=== PATIENT | male | born 1950 | race Caucasian/White ===

== ENCOUNTER 2018-03-01 10:14 | Day surgery (SDC) | payer MEDICARE, SELFPAY ==
[2018-03-01 10:53] VITALS: BP 147/86; PULSE 86; RESP 16; TEMP 36.1; O2SAT 97; BMI 22.4
[2018-03-01] MEDS: PROPARACAINE 0.5% OPHTH SOL 2 DROPS EYE-OP (10:54)
[2018-03-01] MEDS: CATARACT EYE COMPOUND (10 DROPS/SYRINGE) 3 DROPS EYE-OP (11:00)
--- NOTE | 2018-03-01 12:14 | P.OP.PRE_ITS ---
Pre-operative Note Interval Note Changes: No
--- NOTE | 2018-03-01 12:14 | PM.PREOP ---
Pre-operative Note Interval Note Changes: No
--- NOTE | 2018-03-01 12:14 | PM.OP.1 ---
Operative Date/Time/Diagnoses Pre-op diagnosis: Cataract Left eye Post-op diagnosis: same Procedure & Clinicians Surgeon: Luis Armando Grimaldo Anesthesia Type: MAC +/- and Sedation Operative Notes Procedure in detail: Patient brought to the operating suite. Tetracaine drops placed in the left eye. Marking instrument was used to teri the verticle and horizontal meridians. Patient was prepped and draped in sterile manner. Wire lid speculum was placed in the eye. Betadine drops were placed on the eye. This was irrigated. Lidocaine jelly was placed on the eye. A paracentesis port was created with a side-port blade. 0.1 mL 1% preservative free lidocaine was injected into the anterior chamber. The anterior chamber was deepened with viscoelastic. 2.6 mm keratome was used to create a temporal clear corneal incision. Cystotome and Utrata forceps were used to create continuous tear capsulorrhexis. Balanced salt solution was used to hydro dissect the nucleus. The phacoemulsification handpiece was inserted and the nucleus was removed using the stop and chop technique. The irrigation aspiration handpiece was inserted and the remaining cortex was removed. Anterior chamber was deepened with viscoelastic. An Arroyo [id number] intraocular lens with a power of 17.5 was injected into the capsular bag. Irrigation aspiration handpiece was inserted and the remaining viscoelastic was removed. The lens was rotated to the 180 degree meridian. Incision was hydrated with balanced salt solution and found to be leak free with pressure with Weck-Bridget sponges. 0.1 mL Vigamox injected anterior chamber. 0.3 mL Kenalog 10 mg was injected subconjunctivally. Lid speculum was removed. The patient left the operating room in excellent condition. Complications: none Condition: stable Disposition: same day surgery
--- NOTE | 2018-03-01 12:24 | SUR.OPER ---
Supine on eye stretcher, head on extension cradle secured with tape. Arms tucked at sides with blanket. Pillow under knees.
[2018-03-01] MEDS: TRIAMCINOLONE 50 MG/5 ML VIAL INJ (12:28)
[2018-03-01] MEDS: PHENYLEPHRINE/LIDOCAINE 3ML VIAL (OR) EYE-OP (12:29)
[2018-03-01] MEDS: MOXIFLOXACIN OPHTH DROPS 3 ML BOTTLE 2 DROPS INJ (12:29)
[2018-03-01] MEDS: CHONDROIDTIN/SOD HYALURONATE 1.05 ML SYRINGE INTRAOCULA (12:29)
[2018-03-01] MEDS: TETRACAINE 0.5% OPHTH DROPS 15 ML 2 DROPS EYE-LEFT (12:29)
[2018-03-01] MEDS: LIDOCAINE JELLY 2% 5 ML 1 APPLIC TOP (12:29)
[2018-03-01] MEDS: BALANCED SALT IRRIG SOLN NO.2 500 ML, EPINEPHrine 1 MG IRR (12:30)
[2018-03-01 12:40] VITALS: BP 152/93; PULSE 72; RESP 20; TEMP 36; O2SAT 97
== END 2018-03-01 12:55 | disposition home or self-care (01) ==
PROVIDERS: Family Provider Naturopath; Visit Provider Ophthalmology
DX: H25.12 Age-related nuclear cataract, left eye (principal); I10 Essential (primary) hypertension
CPT/HCPCS: J0171; J2250; J3010; J3301; V2787

== ENCOUNTER 2018-03-15 11:19 | Day surgery (SDC) | payer MEDICARE, SELFPAY ==
[2018-03-15] MEDS: PROPARACAINE 0.5% OPHTH SOL 2 DROPS EYE-OP (11:35)
--- NOTE | 2018-03-15 11:39 | P.OP_ITS ---
Operative Date/Time/Diagnoses Pre-op diagnosis: Cataract Right eye Post-op diagnosis: same Procedure & Clinicians Procedure: Cataract Surgery Same procedure as scheduled: Yes Surgeon: Luis Armando Grimaldo Anesthesia Type: MAC +/- and Sedation Operative Notes Procedure in detail: Patient brought to the operating suite. Tetracaine drops placed in the right eye. Patient was prepped and draped in sterile manner. Wire lid speculum was placed in the eye. Betadine drops were placed on the eye. This was irrigated. Lidocaine jelly was placed on the eye. A paracentesis port was created with a side-port blade. 0.1 mL 1% preservative free lidocaine was injected into the anterior chamber. The anterior chamber was deepened with viscoelastic. 2.6 mm keratome was used to create a temporal clear corneal incision. Cystotome and Utrata forceps were used to create continuous tear capsulorrhexis. Balanced salt solution was used to hydro dissect the nucleus. The phacoemulsification handpiece was inserted and the nucleus was removed using the stop and chop technique. The irrigation aspiration handpiece was inserted and the remaining cortex was removed. Anterior chamber was deepened with viscoelastic. An Arroyo ZCB00 intraocular lens with a power of 18.0 was injected into the capsular bag. Irrigation aspiration handpiece was inserted and the remaining viscoelastic was removed. Incision was hydrated with balanced salt solution and found to be leak free with pressure with Weck- Bridget sponges. 0.1 mL Vigamox injected anterior chamber. 0.3 mL Kenalog 10 mg was injected subconjunctivally. Lid speculum was removed. The patient left the operating room in excellent condition. Complications: none Condition: stable Disposition: same day surgery
--- NOTE | 2018-03-15 11:39 | P.OP.PRE_ITS ---
Pre-operative Note Interval Note Changes: No
--- NOTE | 2018-03-15 11:39 | PM.PREOP ---
Pre-operative Note Interval Note Changes: No
[2018-03-15] MEDS: CATARACT EYE COMPOUND (10 DROPS/SYRINGE) 3 DROPS EYE-OP (11:40)
[2018-03-15 11:42] VITALS: BP 145/85; PULSE 74; RESP 16; TEMP 36.5; O2SAT 97; BMI 21.7
--- NOTE | 2018-03-15 11:50 | SUR.OPER ---
Supine on eye stretcher, head on extension cradle secured with tape. Arms tucked at sides with blanket. Pillow under knees.
[2018-03-15] MEDS: LIDOCAINE JELLY 2% 5 ML 1 APPLIC TOP (12:02)
[2018-03-15] MEDS: CHONDROIDTIN/SOD HYALURONATE 1.05 ML SYRINGE INTRAOCULA (12:02)
[2018-03-15] MEDS: PHENYLEPHRINE/LIDOCAINE 3ML VIAL (OR) EYE-OP (12:03)
[2018-03-15] MEDS: TRIAMCINOLONE 50 MG/5 ML VIAL INJ (12:03)
[2018-03-15] MEDS: TETRACAINE 0.5% OPHTH DROPS 15 ML 2 DROPS EYE-RIGHT (12:03)
[2018-03-15] MEDS: MOXIFLOXACIN OPHTH DROPS 3 ML BOTTLE 2 DROPS INJ (12:03)
[2018-03-15] MEDS: BALANCED SALT IRRIG SOLN NO.2 500 ML, EPINEPHrine 1 MG IRR (12:04)
[2018-03-15 12:13] VITALS: BP 148/92; PULSE 74; RESP 16; TEMP 36.2; O2SAT 99
== END 2018-03-15 12:28 ==
LOC: OR 11:21
PROVIDERS: Family Provider Naturopath; Visit Provider Ophthalmology
DX: H25.11 Age-related nuclear cataract, right eye (principal); I10 Essential (primary) hypertension
CPT/HCPCS: J0171; J2250; J3010; J3301

== ENCOUNTER → 2018-12-19 11:19 | Outpatient (CLI) | payer MEDICARE, SELFPAY ==
--- NOTE | 2018-12-19 | DI.MRI.S_ITS ---
PROCEDURE: MR LUMBAR SPINE WO CON INDICATIONS: DORSALGIA TECHNIQUE: Noncontrast sagittal T1 spin echo and T2 fast echo, sagittal STIR, axial T1 and T2 fast spin echo through the lumbar spine. In cases with scoliosis, additional coronal T2 fast spin echo may be performed. COMPARISON: None. FINDINGS: Image quality: Excellent. Alignment and Curvature: There is mild retrolisthesis seen at the L5-S1 level. Bone Marrow: Marrow is of normal overall signal. No acute vertebral body compression fractures. Spinal Cord: Conus medullaris terminates at the T12-L1 level. Visualized cord demonstrates normal signal and size. Paraspinous Soft Tissues: No paravertebral masses. T12-L1: Normal appearance. L1-L2: The disc height and disc signal are relatively well-preserved. Mild disc bulge is seen, with a central/right disc extrusion, with superior migration of disc material. There is mild to moderate central canal narrowing seen. No significant neural foraminal narrowing is seen. L2-L3: Normal appearance. L3-L4: The disc height and disc signal are relatively well-preserved. Mild generalized disc bulge is seen. No neural foraminal or central canal narrowing are seen. L4-L5: The disc height is well-preserved. Loss of disc signal is seen at this level. Mild to moderate disc bulge is seen. Moderate facet joint hypertrophy is seen. Moderate to severe bilateral neural foraminal narrowing is seen, left worse than right. There is a degree of compression seen upon the exiting nerve roots. Mild central canal narrowing is seen. L5-S1: Moderate to severe loss of disc height and disc signal are seen. Reactive marrow endplate changes are seen, which are hyperintense on T1-weighted and T2-weighted imaging and most consistent with fatty metaplasia (Modic type II changes). Moderate generalized disc bulge is seen. Moderate facet joint hypertrophy is seen. There is at least moderate right-sided neural foraminal narrowing seen. Moderate to severe left-sided neural foraminal narrowing seen. There is a degree of compression seen upon the exiting nerve roots, left worse than right. No significant central canal narrowing is seen. IMPRESSION: At L1-L2, there is a central disc extrusion seen. At L4-L5 and at L5-S1, there is a degree of compression seen upon the exiting bilateral L4 and L5 nerve roots. Moderate to severe loss of disc height is seen at L5-S1. Dictated by: Yovany Davila M.D. on 12/19/2018 at 12:20 Approved by: Yovany Davila M.D. on 12/19/2018 at 12:25
== END ==
PROVIDERS: Family Provider Naturopath; Visit Provider Orthopaedic Surgery
DX: M54.9 Dorsalgia, unspecified (principal); M43.17 Spondylolisthesis, lumbosacral region; M51.16 Intervertebral disc disorders with radiculopathy, lumbar region; M51.17 Intervertebral disc disorders with radiculopathy, lumbosacral region; M48.061 Spinal stenosis, lumbar region without neurogenic claudication; M48.07 Spinal stenosis, lumbosacral region
CPT/HCPCS: 72148

== ENCOUNTER → 2019-09-07 13:56 | Outpatient (CLI) | payer MEDICARE, SELFPAY ==
[2019-09-07 14:35] LABS: Add Manual Diff / Slide Review NO; Basophils Absolute Auto 200 /uL (0-100); Basophils Percent Auto 3.1 % (0-2); Eosinophils Absolute Auto 300 /uL (0-450); Eosinophils Percent Auto 4.4 % (2-4); Hematocrit 44.9 % (41-53); Hemoglobin 15.4 g/dL (13.5-17.5); Lymphocytes Absolute Auto 2700 /uL (1100-4500); Lymphocytes Percent Auto 34.6 % (25-40); Mean Corpuscular HGB Conc 34.2 % (30-36); Mean Corpuscular Volume 90.4 fL (80-100); Monocytes Absolute Auto 900 /uL (0-900); Monocytes Percent Auto 11.6 % (3-14); Neutrophils Absolute Auto 3600 /uL (1500-7000); Neutrophils Percent Auto 46.3 % (50-75); Platelet Count 300 X10^3/uL (150-400); Red Blood Cell Count 4.96 X10^6/uL (4.5-5.9); Red Cell Distribution Width 13.8 % (11.6-14.8); White Blood Cell Count 7.8 X10^3/uL (4.5-11.0)
[2019-09-07 14:43] LABS: BUN Creatinine Ratio 26.3 (6-22); Blood Urea Nitrogen 21 mg/dL (9-20); Calcium 9.7 mg/dL (8.4-10.2); Carbon Dioxide 27 mmol/L (22-32); Chloride 103 mmol/L (98-107); Estimated Glomerular Filt Rate > 60.0 mL/min (>60); Glucose 134 mg/dL (80-110); HEMOLYSIS < 15 (0-50); Potassium 3.9 mmol/L (3.4-5.1); Sodium 140 mmol/L (137-145)
== END ==
PROVIDERS: Family Provider Naturopath; PCP Naturopath; Visit Provider Orthopaedic Surgery Orthopaedic Surgery of the Spine
DX: Z01.818 Encounter for other preprocedural examination (principal); Z01.812 Encounter for preprocedural laboratory examination
CPT/HCPCS: 36415; 80048; 85025; 93005; 93010

== ENCOUNTER → 2020-02-15 13:30 | Outpatient (CLI) | payer MEDICARE, SELFPAY ==
[2020-02-15 13:47] LABS: Add Manual Diff / Slide Review NO; Basophils Absolute Auto 100 /uL (0-100); Basophils Percent Auto 1.1 % (0-2); Eosinophils Absolute Auto 200 /uL (0-450); Eosinophils Percent Auto 2.5 % (2-4); Hematocrit 47.5 % (41-53); Hemoglobin 16.1 g/dL (13.5-17.5); Lymphocytes Absolute Auto 2700 /uL (1100-4500); Mean Corpuscular Hemoglobin 31.5 PG (26-34); Mean Corpuscular Volume 92.7 fL (80-100); Monocytes Absolute Auto 600 /uL (0-900); Monocytes Percent Auto 7.5 % (3-14); Neutrophils Absolute Auto 4800 /uL (1500-7000); Neutrophils Percent Auto 56.9 % (50-75); Platelet Count 279 X10^3/uL (150-400); Red Blood Cell Count 5.12 X10^6/uL (4.5-5.9); Red Cell Distribution Width 13.8 % (11.6-14.8); White Blood Cell Count 8.5 X10^3/uL (4.5-11.0)
[2020-02-15 16:03] LABS: BUN Creatinine Ratio 18.9 (6-22); Blood Urea Nitrogen 17 mg/dL (9-20); Calcium 9.7 mg/dL (8.4-10.2); Carbon Dioxide 27 mmol/L (22-32); Chloride 102 mmol/L (98-107); Estimated Glomerular Filt Rate > 60.0 mL/min (>60); Glucose 167 mg/dL (80-110); HEMOLYSIS < 15 (0-50); Potassium 4.6 mmol/L (3.4-5.1); Sodium 138 mmol/L (137-145)
== END ==
PROVIDERS: Family Provider Naturopath; PCP Naturopath; Referring Provider Orthopaedic Surgery Orthopaedic Surgery of the Spine; Visit Provider Orthopaedic Surgery Orthopaedic Surgery of the Spine
DX: Z01.812 Encounter for preprocedural laboratory examination (principal); Z01.818 Encounter for other preprocedural examination
CPT/HCPCS: 36415; 80048; 85025; 93005

== ENCOUNTER → 2020-02-23 13:18 | Outpatient (CLI) | payer MEDICARE, SELFPAY ==
[2020-02-24 09:20] LABS: COVID19 Sendout Not Detected (Not Detect)
== END ==
PROVIDERS: PCP Naturopath; Visit Provider Physician Assistant
DX: Z01.812 Encounter for preprocedural laboratory examination (principal)
CPT/HCPCS: 87635

== ENCOUNTER 2020-02-27 12:47 | Observation (INO) | payer MEDICARE, SELFPAY ==
[2020-02-19 12:24] VITALS: BMI 25.9
[2020-02-26] VITALS (18 sets, daily range): BP systolic 111–155; BP diastolic 71–91; PULSE 75–93; RESP 9–18; TEMP 35.8–36.7; O2SAT 91–100; BMI 25.0
--- NOTE | 2020-02-26 | DI.RAD.S_ITS ---
PROCEDURE: XR LUMBAR SPINE 2-3V INDICATIONS: L5-S1 TLIF TECHNIQUE: 2 views of the lumbar spine were acquired. COMPARISON: None. FINDINGS: Bones: There has been successful placement of transverse pedicle screws and vertical fixation rods and a interbody disc prosthesis crossing L5-S1, establishing normal alignment. Soft tissues: Overlying bowel gas pattern is normal. No suspicious soft tissue calcifications. IMPRESSION: Normal alignment is stab wished after posterior fusion procedure with interbody disc cage prosthesis placement at L5-S1. Dictated by: Raciel Lobo M.D. on 02/26/2020 at 11:19 Approved by: Raciel Lobo M.D. on 02/26/2020 at 11:20
[2020-02-26] MEDS: LACTATED RINGERS 1,000 ML 42 ML IV ×2 (07:00→09:29)
--- NOTE | 2020-02-26 07:46 | PM.PREOP ---
Pre-operative Note COVID-19 COVID-19 status: Negative Result date/Date tested (Pos, Neg/Pending): 02/24/20 Interval Note History & Physical reviewed/Exam performed by Physician: Yes Changes to H&P: No
[2020-02-26] MEDS: CEFAZOLIN 1 GM/50 ML FROZ.PIGGY IV ×3 (07:48→23:17)
--- NOTE | 2020-02-26 08:39 | SUR.OPER ---
Prone on spine table, head in foam head support, padded chest and pelvic supports, gel pad at knees, lower legs supported by pillows; nipples, genitalia and toes free of pressure, arms secured on foam padded arm boards at <90 degrees abduction. Tape over blanket at thigh secured to table.
[2020-02-26] MEDS: BUPIVACAINE 0.25% W/ EPI 30 ML VIAL INJ (08:50)
[2020-02-26] MEDS: BUPIVACAINE LIPOSOME 266 MG/20 ML VIAL INJ (08:51)
--- NOTE | 2020-02-26 10:20 | P.OP_ITS ---
Operative Date/Time/Diagnoses Date of procedure: 02/26/20 Time of procedure: 08:09 Pre-op diagnosis: 1. L5-S1 spondylosis with radiculopathy 2. L5-S1 spinal stenosis Post-op diagnosis: same Procedure & Clinicians Procedure: 1. L5-S1 Postero-lateral and posterior interbody fusion 2. L5-S1 interbody cage placement. 3. L5-S1 decompressive laminectomy with bilateral facetecomies 4. L5-S1 Posterior non-segmental instrumentation 5. [place] of bone marrow from iliac crest 6. Utilization of microsurgical technique and operating microscope Same procedure as scheduled: Yes Indications: Patient has been having chronic back pain and worsening lumbar radiculopathy. Patient has persistent left lower extremity radiculopathy failing conservative management. Patient failed multiple conservative management with worsening pain weakness and numbness in her lower extremity. Patient has been having difficulty performing activity of daily living. After discussing risks benefits of treatment options, patient elected proceed with surgery. Surgeon: Petra Hooker Mangle Tender Cloth: Lincoln Savage Click Yes if Unassisted: No Anesthesia Type: General Operative Notes Closure Type: primary Specimen(s): none sent Prosthetic devices, grafts, tissues, transplants, or devices: Globus revolve screws, Rise cage Estimated Blood Loss (mL): 100 Blood products transfused: none Procedure in detail: Patient was seen in the preoperative area. Risks and benefits of the surgery was discussed with the patient. Informed consent was obtained from the patient and placed in the chart. Surgical site was marked. Patient was taken to the operative room. General anesthesia was administered. Prophylactic antibiotic was given to the patient less than 30 min before the incision was made. Patient was placed into a prone position on the Ken table. Patient's back was then prepped and draped in the sterile fashion. Time- out was performed at this time. Using AP and lateral C-arm imaging the interval between L5-S1 was identified and marked on patient's back. A 2 inch incision 2 in from midline was made on the left side first. The fascia was incised in line with skin incision. Globus MARS retractors was placed inside the incision and docked onto the L5 lamina. Using microsurgical technique and operating microscope, a L5 laminectomy and L5-S1 facetectomy was performed using a Kerrison rongeur. The disc space at L5-S1 was identified. Patient was found severe central neural foramen stenosis which was fully decompressed after the laminectomy and facetectomy was completed. The total facetectomy rendered the L5-S1 grossly unstable and require fusion pro cedure at the same time. And a total diskectomy was performed at L5-S1 level. The endplates were decorticated using a rasp and shaver. The total diskectomy and decortication was performed at L5-S1 level in order to to accomplish a L5-S1 fusion. The local bone from the laminectomy and facetectomy was saved for local bone grafting. After the total diskectomy and decortication was completed, Trif ecta bone graft material was combined with local bone that was harvested earlier. At this time, a separate skin is incision was made over the iliac crest. A Jamshidi needle was inserted into the iliac crest through a separate skin incision. 5 cc of bone marrow aspiration was obtained through the separate skin incision using a Jamshidi needle from the iliac crest. The bone marrow aspiration was combined with local bone and the Trifecta bone grafting material. The bone grafting material was placed into the L5-S1 interbody space along with a expandable cage. The cage was expanded to its maximum height using the torque limiting screwdriver. At this time a mirror image incision was made on the right side. The fascia was incised in line with the skin incision. Globus MARS retractor was inserted and docked onto the L5-S1 posterolateral gutter. Using the power drill, posterior- lateral decortication was performed at L5-S1 level until bleeding cortical bone was identified. The remaining bone grafting material was placed into the L5-S1 posterior lateral gutter he order to accomplish posterolateral fusion at the L5- S1 level. Using the double C-arm technique, pedicle screws were placed into the L5-S1 pedicles bilaterally. This was done by placing the Jamshidi needle into the pedicles, then placing the guidewires over the Jamshidi needle, and finally placing the cannulated screws over the guidewires bilaterally. After the pedicle screws were placed, 2 titanium rods was locked into the heads of the pedicle screws using locking caps and torque limiting screwdriver. After all the hardware was placed, and confirmed with AP and lateral C-arm imaging, the wound was then irrigated with sterile normal saline and packed with Ray-Maria Del Carmen gauze for 3 min to accomplish hemostasis. After the gauze was removed the deep fascia was closed with #1 Vicryl suture. The subcutaneous layer was closed with 2-0 Vicryl. The skin was closed with skin marine. Patient tolerated the procedure well. There were no complications. Complications: none Post-operative Condition: stable Disposition: PACU Plan for aftercare: Admit to inpatient hospital
[2020-02-26] MEDS: HYDROMORPHONE 2 MG INJ IV ×4 (10:42→11:11)
[2020-02-26] MEDS: hydrOXYzine 50 MG/ML INJ 25 MG IM (11:07)
[2020-02-26] MEDS: LORazepam 2 MG/ML INJ 0.5 MG IV (11:20)
--- NOTE | 2020-02-26 11:36 | SUR.PHASEI ---
Report called to Vanessa
--- NOTE | 2020-02-26 11:37 | SUR.PHASEI ---
Intermittent desats to the mid 80s, deep breaths encouraged.
--- NOTE | 2020-02-26 11:44 | PC.NURSE ---
Day shift: Pt not on AC unit at this time.
--- NOTE | 2020-02-26 11:53 | PC.NURSE ---
Day shift: Pt on unit from PACU at approx 1200. Oriented to room and call light. Agrees to not get OOB w/o help from staff. Call light in read. Coversite on op-site is CDI.
--- NOTE | 2020-02-26 11:53 | SUR.PHASEI ---
Patient transferred to the floor with pulse ox. O2 sat 88-90% RA, deep breaths encouraged. 2l o2 applied in the room, sats increased to upper 90s. Report given to Vanessa. VS otherwise stable. IV saline locked. Dressing checked with RN. Belongings bag, brown bag and lower denture with patient.
[2020-02-26] MEDS: SODIUM CHLORIDE 0.9% 1,000 ML 100 ML IV ×2 (12:18→20:52)
[2020-02-26] MEDS: OXYCODONE IR 10 MG TABLET PO ×4 (12:48→23:16)
[2020-02-26] MEDS: HYDROMORPHONE 0.5 MG INJ 0.2 MG IV (14:28)
--- NOTE | 2020-02-26 15:38 | PT.IIE ---
Current Diagnoses Other spondylosis with radiculopathy, lumbosacral region (02/26/20) Spinal stenosis, lumbar region without neurogenic claudication (02/26/20) Surgery Performed Operation Date: 02/26/20 07:45 Actual Procedures p L5-S1 TLIF w/ instrumentation - Petra Hooker MD Surgical History (Last Updated 02/19/20 @ 13:12 by Marline Hung, RN) History of ankle surgery (Acute) Hx of appendectomy (Acute) Hx of bilateral cataract extraction (Acute 2017) Hx of hernia repair (Acute 1966) Medical History (Last Updated 02/19/20 @ 13:23 by Marline Hung RN) Bursitis of right hip (Acute) Former smoker (Acute) History of agent [place] exposure (Acute) History of heroin abuse (Acute) HTN (hypertension) (Acute) PTSD (post-traumatic stress disorder) (Acute) Sciatica (Acute) Physical Therapy Inpatient Evaluation/Re-Eval M1 PT/OT-IP Prior Functional Status Start: 02/26/20 13:43 Freq: NEEDED Status: Active Protocol: Document 02/26/20 15:23 AW (Rec: 02/26/20 15:38 AW [id number]) Medical Review Prior Functional Status Medical History Reviewed Yes Communication WNL. Pt is an effective verbal communicator. Mobility and Gait Pt states he is independent without assistive device but with a limit of ~50 feet due to back and hip pain. He uses an old riding mower without the mowing attachment to get around his property. Activities of Daily Living and IADL's Independent with ADL's. 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 Social History Household Members significant other,other Living Arrangements House Number of Floors (Floors) One Floor Number of Stairs To Enter/Railing? Single threshhold step to enter. 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 M2 PT-IP Current Condition Start: 02/26/20 13:43 Freq: NEEDED Status: Active Protocol: Document 02/26/20 15:23 AW (Rec: 02/26/20 15:38 AW [id number]) Physical Therapy Current Condition Current Condition Evaluation Date 02/26/20 Treatment Diagnosis L5-S1 TLIF; difficulty in walking Onset Date 02/26/20 Precautions Lumbar Precautions Log Roll,No Twisting,Limit Bending,Lifting Restriction of 10 lbs,Gait Belt above Incisional Area M3 PT-IP Subjective Start: 02/26/20 13:43 Freq: NEEDED Status: Active Protocol: Document 02/26/20 15:23 AW (Rec: 02/26/20 15:38 AW [id number]) Subjective Physical Therapy Visit Type Type Initial Evaluation Visit Start Time 14:57 Visit Stop Time 15:20 Total Visit Minutes 23 Notes Pt's niece in room throughout evaluation Number of TYPE MAPPER Visits 0 Physical Therapy Visit Comments Patient Comments Pt is having difficulty keeping his eyes open but is easily rousable and willing to participate with PT Patient Goals Pt plans to retrurn home with his SO supporting Therapy Pain Assessment Pain When Pain Assessed During Mobility Pain Present Pain Present Pain Reported Location Back Intensity 3 Scale Used Numeric (0 - 10) Pain Management Techniques Re-positioning,Timing of Activity with Medications M4 PT-IP Mobility and Gait Start: 02/26/20 13:43 Freq: NEEDED Status: Active Protocol: Document 02/26/20 15:23 AW (Rec: 02/26/20 15:38 AW [id number]) PT-Bed Mobility Assessment Rolling Type of Rolling Log Rolling,Roll to Left Level of Assist Contact Guard Assistance Supine to Sit Supine to Sit Contact Guard Assistance Scooting Scooting to Edge of Bed Standby Assistance PT-Transfer Assessment Sit to and From Stand Sit to and from Stand Contact Guard Assistance Equipment Transfer Assistive Device Gait Belt,Front Wheeled Walker Orthotic/Prosthetic Devices or Brace: No Transfers Transfer Destination Chair Transfer Technique pt ambulated with FWW Transfer Ability Level of Assist Contact Guard Assistance,1 Person Assistance Comments Mobility Comments With HOB flat, pt was able to log roll to his left side and transition sidelying to sit CGA and minimal verbal cues for sequencing. He was able to sit EOB without UE support. He stood using FWW CGA and ambulated 10 feet to the window and back to the chair CGA with the FWW. Pt required verbal cues for stand to sit on the chair, especially for keeping the walker with him during the turn. Pt was positioned on the chair with call light and all needs within reach. Gait Assessment Gait Gait Assistance Required: Contact Guard Assist Distance (Feet) 10 Able to Maintain Weight Bearing Status Yes During Gait Assistive Devices Assistive Device Gait Belt,Front Wheeled Walker Orthotic/Prosthetic Devices or Brace: No Gait Deviations General Gait Pattern Antalgic,Decreased Stride Length,Decreased Feet Clearance,Flexed Trunk Factors Limiting Gait Function Factors Limiting Gait Function Decreased Activity Tolerance, Decreased Sensation,Decreased Strength,Difficulty Following Directions,Limited Range of Motion,Pain,Poor Balance Comments Gait Comments Pt ambulated in the room with slow speed but with good attention to spinal precautions. Stair Climbing Assessment Comments Stair Climbing Comments Not assessed. PT-Balance Assessment Sitting Balance and Reactions Static Sitting Balance Ability Good Dynamic Sitting Balance Ability Good Standing Balance and Reactions Static Standing Balance Ability Good Dynamic Standing Balance Ability Good Device Used FWW M5 PT-IP Objective Assessments Start: 02/26/20 13:43 Freq: NEEDED Status: Active Protocol: Document 02/26/20 15:23 AW (Rec: 02/26/20 15:38 AW [id number]) Orientation Orientation/Cognition Level of Alertness Lethargic Orientation Name,Day of Week,Place, Situation Language Function Ability No Deficits Noted Safety Awareness Decreased Safety Awareness Memory Description No Deficits Noted Gross Range of Motion Upper Extremity ROM Assessment Within Functional Limits Lower Extremity ROM Assessment Within Functional Limits Strength Lower Extremity Strength Hip 4/5 Knee 4+/5 Ankle 5/5 Coordination Assessment Gross Coordination Gross Coordination WNL Sensation Assessment Sensation Gross Sensation WNL Muscle Tone Muscle Tone WNL Yes M6 PT-IP Treatment Start: 02/26/20 13:43 Freq: NEEDED Status: Active Protocol: Document 02/26/20 15:23 AW (Rec: 02/26/20 15:38 AW [id number]) Physical Therapy Treatment Education Education Provided Precautions,Weight Bearing Status,Post-Op Packet,Safety Other Treatments Other Treatment Performed Provided education on role of PT, plan of care, post-op precautions, and safe use of FWW. M7 PT-IP Assessment and Plan Start: 02/26/20 13:43 Freq: NEEDED Status: Active Protocol: Document 02/26/20 15:23 AW (Rec: 02/26/20 15:38 AW [id number]) PT Summary Assessment and Plan Potential Rehabilitation Potential Excellent Status of Condition at Evaluation Evolving Summary Impairments Pain,ROM,Strength,Balance, Sensation,Bed Mobility, Transfers,Gait,Activity Tolerance Assessment Summary Earle is a 69 yo man seen for PT evaluation on POD0 following L5-S1 TLIF. Pt is indpedent at baseline but admits to a walking limit of ~ 50 feet due to back and hip pain. On evaluation, pt required CGA for bed mobility, transfers, and short bout of gait with FWW. PT anticipates pt will progress and be safe to discharge to home with his significant other providing assist. Goals Bed Mobility Goal Independent Transfer Goal Independent,Front Wheeled Walker Gait Goal Independent,Front Wheel Walker Gait Distance 200 Other Goals - up/down one step with or without FWW SBA Days to Meet Goals 2 Frequency of Treatment Frequency Of Treatment Twice a Day Treatment Plan Physical Therapy Treatment Plan Bed Mobility Training,Transfer Training,Gait Training, Therapeutic Exercise,Balance Retraining,Post Op Education, Discharge Planning,Hot or Cold Pack Other Recommendations and Next Treatment gait training with FWW; Focus reinforce precautions Recommendations To Nursing Amount of Assist Needed 1 Person Assist Discharge Recommendations PT Discharge Recommendations Home with Assistance Transportation Needs at Discharge Private Vehicle
[2020-02-26] MEDS: SENNOSIDES 8.6 MG TABLET 17.2 MG PO (20:52)
[2020-02-26] MEDS: DOCUSATE 100 MG CAPSULE PO (20:52)
--- NOTE | 2020-02-26 23:13 | PC.NURSE ---
LATE NOTE,300MLS URINE ADDED TO PATIENT BY MISTAKE WRONG PATIENT. PATIENT WAS UNABLE TO URINATE,BLADDER SCAN 360ML, PATIENT ATTEMPTED SEVERAL TIME BUT UNABLE TO URINATE,IN AND OUT PUGH PLACED AND 275MLS DRAINED.PATIENT [place].VERY WELL,STATES HE CAN SLEEP ALL NIGHT NOW.
--- NOTE | 2020-02-27 00:17 | PC.NURSE ---
Addendum entered by Ansley Bronson R.N. 02/27/20 02:46: Voided 200cc using urinal in bed. States pain is currently 6-7/10 so medicated with Oxycodone. Original Note: Patient seen and assessed at 2324. Is alert and oriented. Breath sounds CTA with RA sat of 95%. HRR. BP trends high at 149/91; does have hx of HTN and takes antihypertensive meds. Denies nausea. BT hypoactive and denies flatus as yet. Was unable to void post op so had in/out cath done at 2300 for 275cc. Is able to move himself in bed. Dressing to back with spot of red drainage at bottom edge; outlined. When out of bed uses walker and 1 assist as does state he feels week. CMS is intact. Refusing SCD's so provided education re: DVT prevention and patient verbalizes understanding. Complained of 7/10 pain in back and was medicated with Oxycodone and is currently asleep. Fall risk score is moderate; bed alarm is activated.
[2020-02-27] MEDS: OXYCODONE IR 10 MG TABLET PO ×6 (02:45→22:23)
[2020-02-27 05:35] VITALS: BP 144/83; PULSE 84; RESP 16; TEMP 36.8; O2SAT 93
[2020-02-27 08:16] VITALS: BP 140/87; PULSE 96; RESP 18; TEMP 36.9; O2SAT 95
[2020-02-27 08:25] LABS: Hematocrit 39.6 % (41-53); Hemoglobin 13.1 g/dL (13.5-17.5); Mean Corpuscular HGB Conc 33.1 % (30-36); Mean Corpuscular Hemoglobin 30.6 PG (26-34); Mean Corpuscular Volume 92.4 fL (80-100); Platelet Count 270 X10^3/uL (150-400); Red Blood Cell Count 4.29 X10^6/uL (4.5-5.9); Red Cell Distribution Width 13.7 % (11.6-14.8); White Blood Cell Count 17.6 X10^3/uL (4.5-11.0)
[2020-02-27] MEDS: lisinopriL 20 MG TABLET PO (08:54)
[2020-02-27] MEDS: MAGNESIUM HYDROXIDE 30 ML UDC PO (08:54)
[2020-02-27] MEDS: AMLODIPINE 5 MG TABLET 10 MG PO (08:54)
[2020-02-27] MEDS: DOCUSATE 100 MG CAPSULE PO ×2 (08:54→20:53)
[2020-02-27] MEDS: hydrOXYzine pamoate 25 MG CAPSULE PO ×4 (08:58→23:45)
--- NOTE | 2020-02-27 10:04 | OT.IP.EVAL ---
Current Diagnoses Other spondylosis with radiculopathy, lumbosacral region (02/26/20) Spinal stenosis, lumbar region without neurogenic claudication (02/26/20) Surgery Performed Operation Date: 02/26/20 07:45 Actual Procedures p L5-S1 TLIF w/ instrumentation - Petra Hooker MD Past Medical History (Last Updated 02/19/20 @ 13:23 by Marline Hung, RN) Bursitis of right hip (Acute) Former smoker (Acute) History of agent [place] exposure (Acute) History of heroin abuse (Acute) HTN (hypertension) (Acute) PTSD (post-traumatic stress disorder) (Acute) Sciatica (Acute) Surgical History (Last Updated 02/19/20 @ 13:12 by Marline Hung RN) History of ankle surgery (Acute) Hx of appendectomy (Acute) Hx of bilateral cataract extraction (Acute 2017) Hx of hernia repair (Acute 1966) Occupational Therapy Inpatient Evaluation/Re-Eval M1 PT/OT-IP Prior Functional Status Start: 02/26/20 13:43 Freq: NEEDED Status: Active Protocol: Document 02/27/20 10:31 [facility] (Rec: 02/27/20 11:16 [facility] [id number]) Medical Review Prior Functional Status Medical History Reviewed Yes Communication WNL. Pt is an effective verbal communicator. Mobility and Gait Pt states he is independent without assistive device but with a limit of ~50 feet due to back and hip pain. He uses an old riding mower without the mowing attachment to get around his property. Activities of Daily Living and IADL's Independent with ADL's. 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 Social History Household Members significant other,other Living Arrangements House Number of Floors (Floors) One Floor Number of Stairs To Enter/Railing? Single threshold step to enter. 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 M2 OT-IP Current Condition Start: 02/27/20 11:01 Freq: Status: Active Protocol: Document 02/27/20 10:31 [facility] (Rec: 02/27/20 11:16 [facility] [id number]) Occupational Therapy Current Condition Current Condition Evaluation Date 02/27/20 Treatment Diagnosis Spinal Stenosis s/p L5-S1 TLIF with instrumentation Diagnosis Onset Date 02/26/20 Post Operative Precautions Lumbar Precautions Log Roll,No Twisting,Limit Bending,Lifting Restriction of 10 lbs,Gait Belt above Incisional Area Weight Bearing Status Weight Bearing Status Weight Bear as Tolerated M3 OT- IP Subjective and Pain Start: 02/27/20 11:01 Freq: Status: Active Protocol: Document 02/27/20 10:31 [facility] (Rec: 02/27/20 11:16 [facility] [id number]) OT- Subjective Occupational Therapy Visit Type Type Initial Evaluation Visit Start Time 10:31 Visit Stop Time 10:54 Total Visit Minutes 23 Occupational Therapy Visit Comments Patient Comments Pt agreeable to get up, pt's family member in the room during OT eval. Patient/Caregiver Goals TO go home. OT Pain Assessment Pain When Pain Assessed At Rest Pain Present Pain Present Pain Reported Location Back Intensity 6 M4 OT- IP ADL's Start: 02/27/20 11:01 Freq: Status: Active Protocol: Document 02/27/20 10:31 [facility] (Rec: 02/27/20 11:16 [facility] [id number]) OT [id number] Comments OT Self-Feeding Comments NOt at meal time. OT ADL-Grooming Comments OT Grooming Comments Pt stated already completed. Educated pt on back precautions for grooming needs . OT ADL-Dressing General Eval Lower Body Dressing Ability Standby Assistance Areas Needing Assistance Socks Comments OT Dressing Comments Pt able to comfortable cross his legs in order to do LB dressing needs and not wanting to use any LB dressing equipment at this time. OT ADL-Toileting Comments OT Toileting Comments Educated on back precautions for toileting needs and pt able to appropriately lean and reach back to wipe. Also recommended wet wipes can be helpful as well. Urinal issued to pt to use at home. OT ADL-Bathing Comments OT Bathing Comments Pt not wanting to shower and insists that he will be fine and does not want any help. Suggested would be best to have a shower chair for safety to increase ease to wash his feet and use of long handled sponge. M5 OT- IP IADL's Start: 02/27/20 11:01 Freq: Status: Active Protocol: Document 02/27/20 10:31 [facility] (Rec: 02/27/20 11:16 [facility] [id number]) OT-Instrumental Activities of Daily Living Home Safety Awareness Awareness of Need for Assistance at Home Good Awareness Ability to Problem Solve Emergency Able to Problem Solve Situations Home Safety Comments Pt insistent that he will get help if needed at home, even though states does not want Ansley to assist for his showering need. M6 OT- IP Functional Cognition Start: 02/27/20 11:01 Freq: Status: Active Protocol: Document 02/27/20 10:31 [facility] (Rec: 02/27/20 11:16 [facility] [id number]) Cognitive Factors Limiting Selfcare Function Cognitive Ability Level of Alertness Alert Patient Orientation Name,Age,Birthday,Month,Date, Year,Day of Week,Place, Situation Attention Span Ability Capable of Focused Attention, Capable of Sustained Attention Ability to Follow Commands Able to Follow Multi-Step Commands Memory Description No Deficits Noted Safety Awareness Decreased Ability to Apply Precautions,Underestimates Need for Assistance Cognitive Comments Cognitive Assessment Comments Pt decreased for safety awareness and needing reminders to incorporate his back precautions for log rolling needs. OT- Vision and Hearing OT- Hearing Assessment OT- Hearing Assessment WFL M7 OT- IP Mobility and Balance Start: 02/27/20 11:01 Freq: Status: Active Protocol: Document 02/27/20 10:31 [facility] (Rec: 02/27/20 11:16 [facility] [id number]) OT- Bed Mobility Assessment Rolling Type of Rolling Roll to Right Supine to Sit Supine to Sit Assist Standby Assistance,Bedrails Sit to Supine Sit to Supine Assist Standby Assistance,Bedrails OT-Transfer Assessment Sit to and From Stand Sit to and from Stand Standby Assistance Transfers Transfer Ability Standby Assistance Technique Transfer Destination Bed Devices Transfer Assistive Devices Gait Belt,Front Wheeled Walker OT- Balance Assessment Sitting Balance and Reactions Static Sitting Balance Ability Normal Dynamic Sitting Balance Ability Good Standing Balance and Reactions Static Standing Balance Ability Good Dynamic Standing Balance Ability Good M8 OT- IP Objective Assessments Start: 02/27/20 11:01 Freq: Status: Active Protocol: Document 02/27/20 10:31 [facility] (Rec: 02/27/20 11:16 [facility] [id number]) OT Strength Upper Extremity Strength Assessment Within Functional Limits M9 OT- IP Assessment and Plan Start: 02/27/20 11:01 Freq: Status: Active Protocol: Document 02/27/20 10:31 [facility] (Rec: 02/27/20 11:16 [facility] [id number]) OT Summary Assessment and Plan Potential Rehabilitation Potential Good Analytic Complexity at Evaluation Low Summary OT Impairments Pain,Balance,Functional Mobility,Dressing,Toileting, Bathing,Toilet Transfers, Shower Transfers,Activity Tolerance Progress Towards Goals Progressing Toward Goals Assessment Summary pt low complexity Goals Grooming Goal Independent Dressing Goal Independent Toileting Goal Independent Bathing Goal Independent Toilet Transfer Goal Independent Shower Transfer Goal Independent Patient/Caregiver Education Goal Demonstrate Post-Op Precautions,Caregiver Independent Assisting Patient Days to Meet Goals 3 Frequency of Treatment Frequency Of Treatment Once a Day Treatment Plan OT Treatment Plan ADL Training,Functional Mobility,Patient/Family Education,Discharge Planning Other Treatment Recommendations and Next Shower if pt willing. Pt / Treatment Focus caregiver training Assessment: Pt is low complexity and main barrier are pain, needing reminders to incorporate back precautions for needs as wanting to sit up into long sitting versus log rolling initially, not open to having help for showers, but eventually states if he needs assist will ask for help. Pt to go home with family when medically stable. Pt would benefit from a shower chair and long handled brush. Discharge Recommendations OT Discharge Recommendations Home with Assistance Home Equipment Needs Shower chair Transportation Needs at Discharge Private Vehicle
--- NOTE | 2020-02-27 10:08 | PC.NURSE ---
Day shift: Dressing changed per PA's order. The 2 incisions show no s/s of infection. Well approximated and marine intact.
--- NOTE | 2020-02-27 10:10 | PT.IPTN ---
Current Diagnoses Other spondylosis with radiculopathy, lumbosacral region (02/26/20) Spinal stenosis, lumbar region without neurogenic claudication (02/26/20) Surgery Performed Operation Date: 02/26/20 07:45 Actual Procedures p L5-S1 TLIF w/ instrumentation - Petra Hooker MD Physical Therapy Treatment Note M2 PT-IP Current Condition Start: 02/26/20 13:43 Freq: NEEDED Status: Active Protocol: Document 02/26/20 15:23 AW (Rec: 02/26/20 15:38 AW [id number]) Physical Therapy Current Condition Current Condition Evaluation Date 02/26/20 Treatment Diagnosis L5-S1 TLIF; difficulty in walking Onset Date 02/26/20 Precautions Lumbar Precautions Log Roll,No Twisting,Limit Bending,Lifting Restriction of 10 lbs,Gait Belt above Incisional Area M3 PT-IP Subjective Start: 02/26/20 13:43 Freq: NEEDED Status: Active Protocol: Document 02/27/20 09:50 [facility] (Rec: 02/27/20 12:29 [facility] [id number]) Subjective Physical Therapy Visit Type Type Treatment Note Visit Start Time 09:50 Visit Stop Time 10:10 Total Visit Minutes 20 Notes family present during tx. Number of TELEGRAPH EDITOR Visits 1 Physical Therapy Visit Comments Patient Comments Pt agreeable to pariticipate with therapy. Patient Goals Pt plans to retrurn home with his SO supporting Therapy Pain Assessment Pain When Pain Assessed During Mobility Pain Present Pain Present Pain Reported Location Back Intensity 5 Scale Used Numeric (0 - 10) Pain Management Techniques Re-positioning,Timing of Activity with Medications M4 PT-IP Mobility and Gait Start: 02/26/20 13:43 Freq: NEEDED Status: Active Protocol: Document 02/27/20 09:50 [facility] (Rec: 02/27/20 12:29 [facility] [id number]) PT-Bed Mobility Assessment Rolling Type of Rolling Log Rolling,Roll to Left Level of Assist Standby Assistance Supine to Sit Supine to Sit Standby Assistance Scooting Scooting to Edge of Bed Standby Assistance PT-Transfer Assessment Sit to and From Stand Sit to and from Stand Contact Guard Assistance Equipment Transfer Assistive Device Gait Belt,Front Wheeled Walker Orthotic/Prosthetic Devices or Brace: No Transfers Transfer Destination Chair Transfer Technique pt ambulated with FWW Transfer Ability Level of Assist Standby Assistance,1 Person Assistance,Use of Upper Extremities Comments Mobility Comments Pt in bed upon arrival, pt stood from bed to have RN change bandage, pt then sat on EOB to have socks donned. Pt ambulated in crespo ~200 requiring CGA. Pt c/o increase in pain with ambulation. Pt sat in chair with cues to use arms of chair for safety. COLLEGE DEAN was present in room changing bed sheets and stated she would get chair alarm for pt. Gait Assessment Gait Gait Assistance Required: Contact Guard Assist Distance (Feet) 200 Able to Maintain Weight Bearing Status Yes During Gait Assistive Devices Assistive Device Gait Belt,Front Wheeled Walker Orthotic/Prosthetic Devices or Brace: No Gait Deviations General Gait Pattern Antalgic,Decreased Stride Length,Decreased Feet Clearance,Flexed Trunk Factors Limiting Gait Function Factors Limiting Gait Function Decreased Activity Tolerance, Decreased Sensation,Decreased Strength,Difficulty Following Directions,Limited Range of Motion,Pain,Poor Balance Comments Gait Comments Pt ambulated in crespo ~200ft requiring CGA and cues during turns to prevent twisting. Stair Climbing Assessment Comments Stair Climbing Comments Not assessed. M5 PT-IP Objective Assessments Start: 02/26/20 13:43 Freq: NEEDED Status: Active Protocol: Document 02/26/20 15:23 AW (Rec: 02/26/20 15:38 AW [id number]) Orientation Orientation/Cognition Level of Alertness Lethargic Orientation Name,Day of Week,Place, Situation Language Function Ability No Deficits Noted Safety Awareness Decreased Safety Awareness Memory Description No Deficits Noted Gross Range of Motion Upper Extremity ROM Assessment Within Functional Limits Lower Extremity ROM Assessment Within Functional Limits Strength Lower Extremity Strength Hip 4/5 Knee 4+/5 Ankle 5/5 Coordination Assessment Gross Coordination Gross Coordination WNL Sensation Assessment Sensation Gross Sensation WNL Muscle Tone Muscle Tone WNL Yes M6 PT-IP Treatment Start: 02/26/20 13:43 Freq: NEEDED Status: Active Protocol: Document 02/26/20 15:23 AW (Rec: 02/26/20 15:38 AW [id number]) Physical Therapy Treatment Education Education Provided Precautions,Weight Bearing Status,Post-Op Packet,Safety Other Treatments Other Treatment Performed Provided education on role of PT, plan of care, post-op precautions, and safe use of FWW. M7 PT-IP Assessment and Plan Start: 02/26/20 13:43 Freq: NEEDED Status: Active Protocol: Document 02/27/20 09:50 [facility] (Rec: 02/27/20 12:29 [facility] [id number]) PT Summary Assessment and Plan Potential Rehabilitation Potential Excellent Status of Condition at Evaluation Evolving Summary Impairments Pain,ROM,Strength,Balance, Sensation,Bed Mobility, Transfers,Gait,Activity Tolerance Assessment Summary Pt with improved pain control this session and was able to get to EOB from supine SBA. Education pt and niece on hand placement and pushing up from stable surface and reaching back for chair before sitting for safety. Pt is impulsive requiring constant cues for hand placement for safety. Goals Bed Mobility Goal Independent Transfer Goal Independent,Front Wheeled Walker Gait Goal Independent,Front Wheel Walker Gait Distance 200 Other Goals - up/down one step with or without FWW SBA Days to Meet Goals 2 Frequency of Treatment Frequency Of Treatment Twice a Day Treatment Plan Physical Therapy Treatment Plan Bed Mobility Training,Transfer Training,Gait Training, Therapeutic Exercise,Balance Retraining,Post Op Education, Discharge Planning,Hot or Cold Pack Recommendations To Nursing Amount of Assist Needed 1 Person Assist Discharge Recommendations PT Discharge Recommendations Home with Assistance Transportation Needs at Discharge Private Vehicle
[2020-02-27 11:05] VITALS: BP 129/79; PULSE 100; RESP 16; TEMP 37.1; O2SAT 94
--- NOTE | 2020-02-27 12:48 | PC.NURSE ---
Day shift: Pt c/o increased pain this afternoon after working with PT and OT. Medicated for this pain per OCT. Pain 7/10 and pain get down to 5/10 on reassessment. Pt stated he is also wiped out now after working and ambulating with PT/OT. This advertising writer thinks that another night in the hospital would help Pt to succeed much better on discharge. Concerned PT will have pain controll issues that may be hard to manage outside the hospital setting. Will discuss this with MD or PA when they are available. Pt continue to have a positive attitude and is appreciative of his care. Call light in reach and Pt agrees to not get OOB w/o help from staff.
--- NOTE | 2020-02-27 13:24 | PM.PNPO.1 ---
Subjective Subjective Date Patient Seen: 02/27/20 Time Patient Seen: 13:26 Interval history: POD #1 s/p L5-S1 TLIF with Dr. Hooker. Patient's pain well controlled. He mobilized with therapy this morning, but is very tired and unsure how much strength he will have for afternoon PT. He is voiding without difficulty. Exam Vital Signs (past 8 hours): - 02/27/20 05:35 02/27/20 08:16 02/27/20 11:05 Temperature 98.3 F 98.5 F 98.8 F Pulse Rate 84 96 H 100 H Respiratory Rate 16 18 16 Blood Pressure 144/83 H 140/87 129/79 Pulse Oximetry 93 95 94 Oxygen Delivery Method Room Air Oxygen Flow Rate 0 Narrative Exam Narrative: Patient is sitting up in bed in no acute distress. Alert orient x3. Calves are soft, compressible, nontender bilaterally. He is able to actively dorsiflex and plantar flex. Sensation intact light touch throughout bilateral lower extremities. Dressing on back is CDI. Objective Labs Result Diagrams: 02/27/20 08:15 Labs: Laboratory Results - last 24 hr 02/27/20 08:15 WBC 17.6 H RBC 4.29 L Hgb 13.1 L Hct 39.6 L MCV 92.4 MCH 30.6 MCHC 33.1 RDW 13.7 Plt Count 270 Assessment & Plan Post-op Postoperative Procedures: Procedures Operation Date: 02/26/20 07:45 Actual Procedures Side Surgeon p L5-S1 TLIF w/ instrumentation Petra Hooker MD Patient will continue to mobilize with physical therapy today. No excessive bending, lifting, or twisting. Continue current pain control. He does note his pain was severe with mobilizing, will do 1 dose of Decadron 10mg. Given that patient feels weak, and having difficulty mobilizing would be safest for patient to go home tomorrow.
[2020-02-27] MEDS: DEXAMETHASONE 10 MG/ML VIAL IV (13:29)
--- NOTE | 2020-02-27 14:25 | PT-IP ANOTE ---
Pt refused stating he was in pain and would not work with therapy this afternoon. Encouraged pt to use SCD's but pt declined, educated pt on ankle pumps 20 every waking hour. No charge.
--- NOTE | 2020-02-27 15:00 | CM.DANOTE ---
DCP/Assessment: Reviewed chart. Patient is a 69yr old male admitted [facility] elective spine surgery, performed by Dr. Hooker on 02-26-20. PCP is Lakshmi Fox ([facility]). Primary payor is 1)Medicare. Met with patient and gabriel/Winsome at bedside explained CM/SW role. Patient seen by therapy and cleared to return home when stable. Patient reports that he has been having a lot of pain. Orthopedics have rounded and anticipate that patient will be stable to d/c home tomorrow 02-28-20. Niece reports that family live on same property on [address]. Family will be available to provide support. Patient will need priority [place] pass for ferry. GROUND INSTRUCTOR ADVANCED to follow up with patient/niece in AM. Patient has FWW for home use. P: Home when stable. CM team to continue to follow. Patient will need priority boarding pass for return to [address]. MOSES [place]oyola Discharge Planning/Care Management CM Discharge Assessment Start: 02/27/20 14:57 Freq: Status: Active Protocol: Document 02/27/20 14:57 KJS (Rec: 02/27/20 15:00 KJS [id number]) Discharge Planning Assessment Assigned Lead Scientist MOSES [place] DPOA/Assigned Designee Name Winsome Rashid (gabriel) Advance Directives? Yes History Provided By Patient,Family Member,Medical Record Has Patient been admitted in last 30 No days? Prior Living Arrangements House Household Members significant other,family,other Independent with ADL's Yes Is patient alert and oriented? Yes Caregiver for Another No DME Already Rented / Owned FWW / Walker Barriers to Discharge No Discharge Plan Home Transportation Arrangement Family to provided transport. Patient will need priority boarding pass to return to [address] . Whiteboard Updated in Patient Room with Yes name and ext. # of Lead Scientist Review Status In Process Next Review Type Continued Stay Review Pre-Anesthesia Assessment Start: 02/19/20 12:24 Freq: Status: Complete Protocol: Document 02/19/20 12:24 CAB (Rec: 02/19/20 13:36 CAB [id number]) Pre-Anesthesia Assessment PAC Comment Reviewed pre-op EKG w/prior in [facility] w/Dr. Harris. Will review w/pt dos. Preferred Name Earle Patient Information Reviewed Via Phone Assessment Assessment Completed With Patient Diagnostic Results BMP/CMP,CBC Comment Labs/EKG @ 02/15/20-COVID screen @ 02/23/20 Primary Care Provider Lakshmi Fox Seen Specialist in Last 12 Months Yes Specialist Seen Opthamologist/Coremaker Helper, Orthopedist Primary Language Serbian Kicking Machine Operator Required No Height 162.56 cm Weight 68.492 kg Body Mass Index (BMI) 25.9 Hearing Ability Normal Visual Assist None Dentition Type Full- Upper & Lower Barriers to Learning None Other Aids No Hx Anesthesia Reactions No Hx Family Anesthesia Reaction No Hx Malignant Hyperthermia No Hx Blood Transfusions No Hx Blood Transfusion Reaction No Anesthesia Review Requested No alcohol intake former Smoking Status Former smoker Tobacco type cigarettes Smoking packs per day 0.5 how long ago did patient quit smoking Quit 2016 Substance Use Type former substance user, marijuana Comment Advised not to smoke marijuana 24 hours prior to surgery Pain Present Pain Reported Musculoskeletal Symptoms Abnormal Gait,Back Pain, Difficulty Walking,Joint Pain, Radiating Pain into Limb History of Falling (Recent or History of No ) Patient is completely paralyzed or No completely immobile Mental Status Oriented to own ability Is patient on oxygen? No Does patient have MACIAS/SOB No Hx Sleep Apnea No CPAP/BIPAP use not prescribed Currently Taking a Beta Shahnaz No Can You Climb a Flight of Stairs Without Yes SOB Hx Chest Pain No Hx SOB No Hx Syncope or Dizziness No Anti-Coagulant Therapy No Has a Acoustic Engineer No Cardiac Testing No Hx Pacemaker/ICD No Pacemaker Rep Required? No Diet Type At Home Regular dysphagia No Genitourinary Symptoms Difficulty Urinating Bladder Pattern Nocturia Urinary Catheter Present No Hx Urinary Self Catheterization No Diabetes No Hx Drug Resistant Organism No Presence of External or Internal Medical Yes: Bilateral eye lens Devices Have you had any close contact with No someone diagnosed with COVID-19? Evaluation/Screening for possible COVID- Yes 19 infection completed? Marital Status Single Lives With significant other,other Prior Living Arrangements House Number of Floors (Floors) One Floor Support System Significant Other Does the Patient Have Assistance After Yes Surgery Patient Discharge Plan Description Return Home Comment Pt advised 1 day length of stay per surgeon Additional comment Lives on [address] Feels Safe in Current Environment Yes Been Physically Hurt or Threatened By a No Person in Current Environment Do you have thoughts of harming yourself None or others? Are you currently considering suicide? No Do you have a plan to hurt yourself or No Plan others? Do You Have Any Spiritual Beliefs That No May Affect Your HC Choices? Do You Have Any Cultural Practices That No May Affect Your HC Choices? Who Can We Speak to About Patient's Care Family, friends Identifying Code for Release of Patient Declines to issue Information Health Care Proxy/Next of Kin Winsome (S.O.) Health Care Proxy Emergency Contact Name Ana (friend) Emergency Contact Advance Directives? No Power of Home Care Provider No PAC Instructions Durable medical equipment, Medications to take/avoid, Nasal antibiotic,No ETOH/ petroleum product on skin DOS, NPO,Post-op transportation,Pre -surgical wash,Sturdy shoes/ comfortable clothes,Do not bring valuables and remove jewelry
[2020-02-27 15:35] VITALS: BP 143/82; PULSE 103; RESP 20; TEMP 36.8; O2SAT 94
[2020-02-27 20:00] VITALS: BP 142/78; PULSE 106; RESP 20; TEMP 36.7
[2020-02-27] MEDS: SENNOSIDES 8.6 MG TABLET 17.2 MG PO (20:53)
[2020-02-27 23:45] VITALS: BP 126/80; PULSE 92; RESP 18; TEMP 36.9; O2SAT 94
--- NOTE | 2020-02-28 02:03 | PC.NURSE ---
Patient seen and assessed at 2345. Is alert and oriented. Breath sounds CTA with RA sat of 94%. HRR. Denies nausea. BT hypoactive but states he is passing flatus. Chronic urinary frequency but denies dysuria; using urinal to void. Is able to move himself in bed and is up with walker and 1 assist. Dressing to back intact with 2 areas of shadow drainage noted and outlined. Has bruising to lower back on both sides of dressing. Refusing to wear SCD's; education provide on DVT prevention and patient verbalizes understanding. Stated pain well controlled at 3/10 but requested Vistaril to help sleep. Fall risk score is moderate; bed alarm is activated.
[2020-02-28] MEDS: OXYCODONE IR 10 MG TABLET PO ×2 (05:17→08:59)
[2020-02-28] MEDS: lisinopriL 20 MG TABLET PO (07:55)
[2020-02-28] MEDS: DOCUSATE 100 MG CAPSULE PO (07:55)
[2020-02-28] MEDS: AMLODIPINE 5 MG TABLET 10 MG PO (07:55)
[2020-02-28] MEDS: SODIUM CHLORIDE 0.9% FLUSH 10 ML IV (07:55)
[2020-02-28 08:00] VITALS: BP 131/68; PULSE 81; RESP 18; TEMP 36.6; O2SAT 93
--- NOTE | 2020-02-28 08:39 | PM.PN.1 ---
Exam Vital Signs (past 8 hours): - 02/28/20 08:00 Temperature 97.9 F Pulse Rate 81 Respiratory Rate 18 Blood Pressure 131/68 Pulse Oximetry 93 Oxygen Delivery Method Room Air Oxygen Flow Rate 0 Objective Labs Result Diagrams: 02/27/20 08:15 Assessment & Plan Assessment & Plan narrative: POD#2 s/p lumbar fusion Doing well. Will plan for D/c today after PT/OT Dressing clean and dry NEuro intact on exam.
--- NOTE | 2020-02-28 09:24 | PT.IPTN ---
Current Diagnoses Other spondylosis with radiculopathy, lumbosacral region (02/27/20) Spinal stenosis, lumbar region without neurogenic claudication (02/27/20) Surgery Performed Operation Date: 02/26/20 07:45 Actual Procedures p L5-S1 TLIF w/ instrumentation - Petra Hooker MD Physical Therapy Treatment Note M2 PT-IP Current Condition Start: 02/26/20 13:43 Freq: NEEDED Status: Discharge Protocol: Document 02/26/20 15:23 AW (Rec: 02/26/20 15:38 AW [id number]) Physical Therapy Current Condition Current Condition Evaluation Date 02/26/20 Treatment Diagnosis L5-S1 TLIF; difficulty in walking Onset Date 02/26/20 Precautions Lumbar Precautions Log Roll,No Twisting,Limit Bending,Lifting Restriction of 10 lbs,Gait Belt above Incisional Area M3 PT-IP Subjective Start: 02/26/20 13:43 Freq: NEEDED Status: Discharge Protocol: Document 02/28/20 09:00 TP (Rec: 02/28/20 14:24 TP [email or web address]) Subjective Physical Therapy Visit Type Type Treatment Note Visit Start Time 09:00 Visit Stop Time 09:24 Total Visit Minutes 24 Notes FLOW MATCH SOFA CUTTER student supervised by Chioma OBREGON. Number of FLOW MATCH SOFA CUTTER Visits 2 Physical Therapy Visit Comments Patient Comments Pt agreeable to pariticipate with therapy. Patient Goals Pt plans to retrurn home with his SO supporting Therapy Pain Assessment Pain When Pain Assessed During Mobility Pain Present Pain Present Pain Reported Location Back Intensity 5 Scale Used 5-6/10 Pain Management Techniques Re-positioning,Timing of Activity with Medications M4 PT-IP Mobility and Gait Start: 02/26/20 13:43 Freq: NEEDED Status: Discharge Protocol: Document 02/28/20 09:00 TP (Rec: 02/28/20 14:24 TP [email or web address]) PT-Bed Mobility Assessment Rolling Type of Rolling Log Rolling,Roll to Left Level of Assist Standby Assistance Supine to Sit Supine to Sit Standby Assistance Scooting Scooting to Edge of Bed Standby Assistance PT-Transfer Assessment Sit to and From Stand Sit to and from Stand Contact Guard Assistance,Use of Upper Extremities Equipment Transfer Assistive Device Gait Belt,Front Wheeled Walker Orthotic/Prosthetic Devices or Brace: No Transfers Transfer Destination Chair Transfer Technique pt ambulated with FWW Transfer Ability Level of Assist Contact Guard Assistance,1 Person Assistance,Use of Upper Extremities Comments Mobility Comments Pt sitting up in bed upon arrival. Pt lowered HOB to flat, log roll to right and transition sidelying to sit on EOB SBA. Pt denied increased pain and dizziness with position change. Sit<>stand to FWW CGA with cues for pushing with one hand from EOB . Ambulation with FWW CGA from EOB to hallway approximately 10ft. Ascend/ descend single platform step with FWW CGA with cues for safe placement of FWW to adhere to precautions. Pt ambulation 270ft in HW with demonstration of successful step pivot turn at midpoint with FWW CGA. Pt transfer to chair with cues to reach one hand behind to lower to chair. Pt left in chair with all needs met, chair alarm armed and call light in reach. Pt is ok to return home with niece and to assist when medically stable. FLOW MATCH SOFA CUTTER will speak with niece before DC for any concerns may have. Gait Assessment Gait Gait Assistance Required: Contact Guard Assist Distance (Feet) 270 Able to Maintain Weight Bearing Status Yes During Gait Assistive Devices Assistive Device Gait Belt,Front Wheeled Walker Orthotic/Prosthetic Devices or Brace: No Gait Deviations General Gait Pattern Antalgic,Decreased Stride Length,Decreased Feet Clearance,Flexed Trunk Factors Limiting Gait Function Factors Limiting Gait Function Decreased Activity Tolerance, Decreased Sensation,Decreased Strength,Difficulty Following Directions,Limited Range of Motion,Pain,Poor Balance Comments Gait Comments See mobility comments. Pt ambulated in HW approximately 270ft with FWW and CGA, with cues for relaxing UE and shld during gait. Stair Climbing Assessment Evaluation Level of Assist On Stairs Contact Guard Assistance Devices Stair Climbing Assistive Devices Front Wheel Walker Technique/Endurance Stair Climbing Direction Ascend and Descend Stair Climbing Technique Step to Step Number of Steps Climbed 1 Stair Climbing Set # Repetitions (reps) 1 Comments Stair Climbing Comments See mobility comments. Pt demonstrates ability to ascend /descend one step while maintaining precautions with cuing to move FWW up/down first and then follow with body. PT-Balance Assessment Sitting Balance and Reactions Static Sitting Balance Ability Normal Dynamic Sitting Balance Ability Good Standing Balance and Reactions Static Standing Balance Ability Good Dynamic Standing Balance Ability Good Device Used FWW M5 PT-IP Objective Assessments Start: 02/26/20 13:43 Freq: NEEDED Status: Discharge Protocol: Document 02/26/20 15:23 AW (Rec: 02/26/20 15:38 AW [id number]) Orientation Orientation/Cognition Level of Alertness Lethargic Orientation Name,Day of Week,Place, Situation Language Function Ability No Deficits Noted Safety Awareness Decreased Safety Awareness Memory Description No Deficits Noted Gross Range of Motion Upper Extremity ROM Assessment Within Functional Limits Lower Extremity ROM Assessment Within Functional Limits Strength Lower Extremity Strength Hip 4/5 Knee 4+/5 Ankle 5/5 Coordination Assessment Gross Coordination Gross Coordination WNL Sensation Assessment Sensation Gross Sensation WNL Muscle Tone Muscle Tone WNL Yes M6 PT-IP Treatment Start: 02/26/20 13:43 Freq: NEEDED Status: Discharge Protocol: Document 02/28/20 09:00 TP (Rec: 02/28/20 14:24 TP [email or web address]) Physical Therapy Treatment Education Education Provided Precautions,Safety M7 PT-IP Assessment and Plan Start: 02/26/20 13:43 Freq: NEEDED Status: Discharge Protocol: Document 02/28/20 09:00 TP (Rec: 02/28/20 14:24 TP [email or web address]) PT Summary Assessment and Plan Potential Rehabilitation Potential Excellent Status of Condition at Evaluation Evolving Summary Impairments Pain,ROM,Strength,Balance, Sensation,Bed Mobility, Transfers,Gait,Activity Tolerance Assessment Summary Pt with improved pain control this session and education provided for safe spinal precaution log roll to sitting was able to get to EOB SBA. Educated pt on hand placement and pushing up from stable surface and reaching back for chair before sitting for safety. Pt is impulsive requiring cues for hand placement and FWW positioning for safety. Pt demonstrates ability to ambulate safely with FWW CGA and ascend/ descend one step with FWW CGA with cuing support of positioning FWW and body awareness, needing to look down with mask donned. Pt can verbally list precautions. Pt is okay to go home with assistance when medically stable. Goals Bed Mobility Goal Independent Transfer Goal Independent,Front Wheeled Walker Gait Goal Independent,Front Wheel Walker Gait Distance 200 Other Goals - up/down one step with or without FWW SBA Days to Meet Goals 2 Frequency of Treatment Frequency Of Treatment Twice a Day Treatment Plan Physical Therapy Treatment Plan Bed Mobility Training,Transfer Training,Gait Training, Therapeutic Exercise,Balance Retraining,Post Op Education, Discharge Planning,Hot or Cold Pack Recommendations To Nursing Amount of Assist Needed 1 Person Assist Discharge Recommendations PT Discharge Recommendations Home with Assistance Transportation Needs at Discharge Private Vehicle
--- NOTE | 2020-02-28 10:13 | OT.IP.TRT ---
Current Diagnoses Other spondylosis with radiculopathy, lumbosacral region (02/27/20) Spinal stenosis, lumbar region without neurogenic claudication (02/27/20) Surgery Performed Operation Date: 02/26/20 07:45 Actual Procedures p L5-S1 TLIF w/ instrumentation - Petra Hooker MD Occupational Therapy Treatment Note M2 OT-IP Current Condition Start: 02/27/20 11:01 Freq: Status: Active Protocol: Document 02/27/20 10:31 [facility] (Rec: 02/27/20 11:16 [facility] [id number]) Occupational Therapy Current Condition Current Condition Evaluation Date 02/27/20 Treatment Diagnosis Spinal Stenosis s/p L5-S1 TLIF with instrumentation Diagnosis Onset Date 02/26/20 Post Operative Precautions Lumbar Precautions Log Roll,No Twisting,Limit Bending,Lifting Restriction of 10 lbs,Gait Belt above Incisional Area Weight Bearing Status Weight Bearing Status Weight Bear as Tolerated M3 OT- IP Subjective and Pain Start: 02/27/20 11:01 Freq: Status: Active Protocol: Document 02/28/20 10:15 [facility] (Rec: 02/28/20 10:22 [facility] [id number]) OT- Subjective Occupational Therapy Visit Type Type Treatment Note Visit Start Time 10:05 Visit Stop Time 10:13 Total Visit Minutes 8 Occupational Therapy Visit Comments Patient Comments Pt not wanting to shower or get dressed at this time and pt's niece came in at the end of the session. Patient/Caregiver Goals To go home. OT Pain Assessment Pain When Pain Assessed At Rest Pain Present Pain Present Denied Pain M4 OT- IP ADL's Start: 02/27/20 11:01 Freq: Status: Active Protocol: Document 02/28/20 10:15 [facility] (Rec: 02/28/20 10:22 [facility] [id number]) OT [id number] Comments OT Self-Feeding Comments NOt at meal time. OT ADL-Dressing General Eval Lower Body Dressing Ability Standby Assistance Areas Needing Assistance Socks Comments OT Dressing Comments Pt not wanting a shipwright supervisor and still comfortably able to cross his legs over in order to do LB dressing needs. OT ADL-Toileting Comments OT Toileting Comments Pt not having to go. OT ADL-Bathing Comments OT Bathing Comments Pt states has a shower stool that he will use and still insistent that nobody assist him with showering needs. Pt however open to having his niece check on his back dressing daily. M5 OT- IP IADL's Start: 02/27/20 11:01 Freq: Status: Active Protocol: Document 02/27/20 10:31 [facility] (Rec: 02/27/20 11:16 [facility] [id number]) OT-Instrumental Activities of Daily Living Home Safety Awareness Awareness of Need for Assistance at Home Good Awareness Ability to Problem Solve Emergency Able to Problem Solve Situations Home Safety Comments Pt insistent that he will get help if needed at home, even though states does not want [place] to assist for his showering need. M6 OT- IP Functional Cognition Start: 02/27/20 11:01 Freq: Status: Active Protocol: Document 02/28/20 10:15 [facility] (Rec: 02/28/20 10:22 [facility] [email or web address]) Cognitive Factors Limiting Selfcare Function Cognitive Comments Cognitive Assessment Comments Pt's niece aware that pt needing vc for safety needs. Especially to remind him to do log rolling. M7 OT- IP Mobility and Balance Start: 02/27/20 11:01 Freq: Status: Active Protocol: Document 02/27/20 10:31 [facility] (Rec: 02/27/20 11:16 [facility] [id number]) OT- Bed Mobility Assessment Rolling Type of Rolling Roll to Right Supine to Sit Supine to Sit Assist Standby Assistance,Bedrails Sit to Supine Sit to Supine Assist Standby Assistance,Bedrails OT-Transfer Assessment Sit to and From Stand Sit to and from Stand Standby Assistance Transfers Transfer Ability Standby Assistance Technique Transfer Destination Bed Devices Transfer Assistive Devices Gait Belt,Front Wheeled Walker OT- Balance Assessment Sitting Balance and Reactions Static Sitting Balance Ability Normal Dynamic Sitting Balance Ability Good Standing Balance and Reactions Static Standing Balance Ability Good Dynamic Standing Balance Ability Good M8 OT- IP Objective Assessments Start: 02/27/20 11:01 Freq: Status: Active Protocol: Document 02/27/20 10:31 [facility] (Rec: 02/27/20 11:16 [facility] [id number]) OT Strength Upper Extremity Strength Assessment Within Functional Limits M9 OT- IP Assessment and Plan Start: 02/27/20 11:01 Freq: Status: Active Protocol: Document 02/28/20 10:15 [facility] (Rec: 02/28/20 10:22 [facility] [id number]) OT Summary Assessment and Plan Potential Rehabilitation Potential Good Analytic Complexity at Evaluation Low Summary Progress Towards Goals Progressing Toward Goals Assessment Summary Pt low complexity and main barriers are decreased safety awareness and ability to incorporate back precautions. Pt's niece has good understanding for all OT needs and pt not wanting any LB dressing equipment at this time. Pt looking to go home today with niece's assist. Goals Grooming Goal Independent Dressing Goal Independent Toileting Goal Independent Bathing Goal Independent Toilet Transfer Goal Independent Shower Transfer Goal Independent Patient/Caregiver Education Goal Demonstrate Post-Op Precautions,Caregiver Independent Assisting Patient Days to Meet Goals 1 Frequency of Treatment Frequency Of Treatment Once a Day Treatment Plan OT Treatment Plan ADL Training,Functional Mobility,Patient/Family Education,Discharge Planning Discharge Recommendations OT Discharge Recommendations Home with Assistance Transportation Needs at Discharge Private Vehicle
[2020-02-28 11:00] VITALS: BP 127/78; PULSE 86; RESP 16; TEMP 36.7; O2SAT 93
--- NOTE | 2020-02-28 12:24 | PT-IP ANOTE ---
Niece requested feedback of progress made during tx (see clinical note details), she also requested verbal recommendations of sequencing with precautions during car transfer upon DC. MANNEQUIN MOLD MAKER discussed with niece Transfer sequencing with patient using FWW and step pivoting to back to car seat with safety use of gait belt and would benefit of use of transfer handle for patient's self support reaching back and pushing off of to accounting clerk/out car and awareness of hip hinge. Niece verbalized feedback very helpful confirmation and confirmed she might get the car transfer handle so more independent.
--- NOTE | 2020-02-28 12:56 | PC.NURSE ---
Discharge instructions and home care handout reviewed with patient and his niece per patient's request. Coversite dressing placed to back, and remains CDI. Niece was able to berry picker machine operator patient's prescriptions prior, and patient states he has no further questions or concerns at this time. Patient escorted out via wheelchair with all his belongings to be discharged to home with his niece.
--- NOTE | 2020-02-28 12:56 | CM.DPNOTE ---
DCP/continued: Reviewed chart. Spoke with Dr. Hooker this AM. He reports that patient okay to d/c home today. Patient seen and cleared by therapy. Received phone call from gabriel/W[facility] re: update. Notified [facility] that patient will be discharged. Current plan is for patient to be on 2:05pm sailing to [facility]. Priority boarding pass completed. Prescriptions provided to niece to fill prior to patient's discharge. Caregiver tips and training provided to niece/patient by therapy. P: Home today. [place] [place]
== END 2020-02-28 12:58 | disposition home or self-care (01) ==
LOC: OR 12:54 → AC 12:54
PROVIDERS: Physician Assistant Surgical; Admitting Provider Orthopaedic Surgery Orthopaedic Surgery of the Spine; PCP Naturopath; Referring Provider Orthopaedic Surgery Orthopaedic Surgery of the Spine; Visit Provider Orthopaedic Surgery Orthopaedic Surgery of the Spine
PROC: (CPT 22633; principal; 2020-02-26 07:45)
DX: M48.061 Spinal stenosis, lumbar region without neurogenic claudication (principal); M47.27 Other spondylosis with radiculopathy, lumbosacral region; I10 Essential (primary) hypertension
CPT/HCPCS: 22633; 20939; 22853; 22840; 63047; 36415; 72100; 76000; 85027; 97116; 97161; 97165; 97530; 97535; C1776; G0378; C9290; J0330; J1100; J1170; J2060; J2250; J2405; J2704; J3010; J3410